=== PATIENT | female | born 1965 | race Caucasian/White ===

== ENCOUNTER 2017-05-01 11:59 | Day surgery (SDC) | payer OTHER ==
[2017-04-27 11:08] VITALS: BMI 34.2
[2017-05-01] MEDS ORDERED: MIDAZOLAM HCL 2 MG/2 ML SINGLE DOSE VIAL ONE (13:34)
[2017-05-01] MEDS ORDERED: PROPOFOL 20 ML ONE ×4 (13:34→15:06)
[2017-05-01] MEDS ORDERED: LIDOCAINE HCL 2% (20ML MULTI-DOSE VIAL) NR ONE (13:35)
[2017-05-01] MEDS ORDERED: BUPIVACAINE HCL/PF 0.5% (5MG/ML) 10 ML VIAL ONE ×2 (13:35→14:30)
[2017-05-01] MEDS ORDERED: ceFAZolin SODIUM 1 GM VIAL ONE (14:17)
[2017-05-01] MEDS ORDERED: DEXAMETHASONE SOD PHOSPHATE 4 MG/1 ML VIAL ONE (14:17)
[2017-05-01] MEDS ORDERED: KETOROLAC TROMETHAMINE 30 MG/1 ML VIAL ONE (14:17)
[2017-05-01] MEDS ORDERED: ONDANSETRON 4 MG/2 ML VIAL ONE (14:17)
[2017-05-01] MEDS ORDERED: BUPIVACAINE HCL/PF 0.5% (5MG/ML) 10 ML VIAL IJ ONE (14:25)
[2017-05-01] MEDS ORDERED: LIDOCAINE HCL 2% (50ML VIAL) INF ONE (14:25)
[2017-05-01] MEDS ORDERED: ONDANSETRON 4 MG/2 ML VIAL IVPUSH PRN (15:11)
[2017-05-01] MEDS ORDERED: oxyCODONE HCL 5 MG TABLET PO PRN ×2 (15:11)
[2017-05-01] MEDS ORDERED: LACTATED RINGERS SOLUTION 1,000 ML IV SCH (15:15)
[2017-05-01 17:38] VITALS: PULSE 58
[2017-05-01 17:50] VITALS: BP 136/76; TEMP 97.7
--- NOTE | 2017-05-03 10:41 | OP ---
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 OPERATION: Excision of bone cyst 3rd digit middle phalanx with biopsy, right foot. Packing of bone cyst with cancellous bone. DESCRIPTION OF PROCEDURE: After noting all vital signs to be stable, the patient was brought to the operating room and placed on the table in the supine position. After intravenous anesthesia was administered, local anesthesia was then administered to the 3rd digit of the right foot using 6 mL of 2% lidocaine and 0.5% Marcaine plain. An ankle tourniquet was applied to the right ankle. The right foot was prepped and draped in the usual sterile fashion. The right foot was elevated and exsanguinated, and the ankle tourniquet was inflated to 250 mmHg. Attention was directed to the right 3rd digit, where a 3-cm linear incision was created overlying the digit. The incision was deepened through skin and subcutaneous tissue. The extensor tendon was identified and was transected at the proximal interphalangeal joint. The extensor tendon was reflected proximally and distally. The middle phalanx of the 3rd digit on the right foot was then exposed. The periosteal tissue and collateral ligaments were dissected free off of the middle phalanx. A bone cyst was noted on the lateral aspect dorsally of the middle phalanx. The bone cyst was probed and opened with the 15 blade. A curette was then used to excise the cancellous bone cyst. A rongeur was used to resect excessive bony cortical erosive lesions on the dorsal aspect of the middle phalanx. The cortical and cancellous specimens were and sent for separate pathological findings. The cyst was flushed with copious amounts of sterile saline. Cancellous bone chips were then used to pack the bone cyst void. The extensor tendon was then reapproximated with 4-0 Vicryl. The skin was then reapproximated with simple interrupted sutures using 4-0 Prolene. Postoperative anesthesia was administered to the right 3rd toe using 5 mL of 0.5% Marcaine. The right 3rd toe was dressed in the usual sterile fashion with Betadine-soaked Adaptic, gauze, Gabe and Coban. The patient tolerated the procedure well, with no complications. The ankle tourniquet was deflated and capillary refill was noted to be within 1 second to all digits of the right foot. The patient was transferred to the recovery room with vital signs stable. LUC BLANCA/[id number]
--- NOTE | 2017-05-06 15:18 | PATH ---
Surgical Pathology Report Patient Name: LAURENCE THOMAS [facility]. Rec. #: [id number] /Age/Gender: 1965 (Age: 51) / F Account: [id number] Location: [facility] Taken: 05/01/2017 Received: 05/01/2017 Reported: 05/06/2017 Physicians: Walter Leyva Specimen(s) Received A: RIGHT THIRD TOE CORTEX B: RIGHT THIRD TOE CYST/TUMOR Clinical History Unknown duration, bone cyst of right third toe Final Diagnosis A. BONE, THIRD TOE, RIGHT, CORTEX, BIOPSY: FRAGMENTS OF BONE AND CARTILAGE WITH DEGENERATIVE CHANGES. SEE COMMENT. B. BONE, THIRD TOE, RIGHT, CYST/TUMOR (BONE MARROW-CANCELLOUS BONE), BIOPSY: FRAGMENTS OF BONE WITH ASSOCIATED FIBROCONNECTIVE TISSUE AND FOCI OF REACTIVE/NEW BONE FORMATION. SEE COMMENT. Comment: Findings are compatible with clinical impression of Unicameral Bone cyst. Medical chart reviewed. Electronically Signed Coretta Lewis M.D. Gross Description A. Received in formalin labeled "right third toe cortex," are 2 harmon bone fragments measuring 0.5 and 0.6 cm in greatest dimension. The specimens are submitted in toto in one cassette, following decalcification. B. Received in formalin labeled "right third toe cyst/tumor (bone marrow-cancellous bone)," is a 0.6 x 0.5 x 0.2 cm aggregate of harmon bone fragments. The formalin is filtered and the specimen is entirely submitted in one cassette, following decalcification. 05/05/201705/05/2017
== END 2017-05-01 17:39 | disposition home or self-care (01) ==
LOC: FASU 11:59
PROVIDERS: ATTEND Podiatrist Foot & Ankle Surgery
PROC: 0QR Lower Bones, Replacement (ICD-10-PCS; 2017-05-01)
PROC: 0YBM0ZZ Excision of Right Foot, Open Approach (ICD-10-PCS; principal; 2017-05-01 13:59)
DX: M85.471 Solitary bone cyst, right ankle and foot (principal)
CPT/HCPCS: 73630-TC-RT; 88304-TC; 88311-TC; 94760

== ENCOUNTER 2017-05-13 09:24 | Emergency (ER) | payer OTHER ==
--- NOTE | 2017-05-13 09:46 | PDOC ---
History of Present Illness - General Chief Complaint: Wound Infection Stated Complaint: INFECTED LEFT FOOT 3 RD TOE SURGICAL SITE Time Seen by Provider: 05/13/17 09:43 - History of Present Illness Initial Comments: 05/13/17 11:22 Chief complaint: Infection toe History of present illness: Patient had surgery on her right third toe May 01. A bone cyst was curetted by commercial sales director in the operating room, same-day surgery. Developed increased pain and redness and swelling several days ago, was begun on Augmentin, but has not improved. Review of systems: No fever/chills, malaise, fatigue, myalgias or arthralgias, chest pain, shortness of breath, abdominal pain, nausea, vomiting, diarrhea, visual or focal neurologic symptoms, unsteadiness of gait. Past medical history: Patient denies comorbidities including diabetes or other metabolic diseases, collagen-vascular disease, coronary artery disease, pulmonary disease, kidney disease. Social/family history reviewed and noncontributory Physical exam: Alert and oriented well-developed well-nourished no acute distress cheerful and cooperative. Gait stable and unimpaired Afebrile, vital signs normal PERRLA, ENT clear Neck supple without bruit mass or nodes Chest clear CV regular without murmur rub or gallop Abdomen benign Right third toe shows diffuse erythema and induration. There is a dorsal incision at the site of surgery. There is no drainage, no fluctuance or other sign of abscess. Several sutures are still in place. There is no extension to the dorsum of the foot or to the other toes. There is no sign of inflammation on the plantar aspect of the foot or the toes. Impression: Possible superficial skin infection resistant to Augmentin. The patient has been doing a considerable amount of standing and walking, probably inhibiting complete healing. No sign of systemic infection or sepsis. Plan: After discussion with the commercial sales director in the patient, it was decided to repeat the cultures, administer an intravenous dose of antibiotic now, and continue by mouth medication to cover MRSA. If systemic symptoms develop such as fever/chills, increased pain or redness, or extension of the infection, the patient is to return to the ER for admission and intravenous antibiotics. Otherwise if there is improvement, to continue oral antibiotics and follow-up closely. Past History - Past Medical History Allergies/Adverse Reactions: Allergies Allergy/AdvReac Type Severity Reaction Status Date / Time No Known Allergies Allergy Verified 05/13/17 09:26 Home Medications: Ambulatory Orders Duloxetine HCl [Cymbalta -] 60 mg PO DAILY 04/27/17 Cephalexin Monohydrate [Keflex] 500 mg PO Q6H #30 capsule 05/13/17 Mupirocin Cream [Bactroban 2% Cream -] 1 applic TP TID 05/13/17 Sulfamethoxazole/Trimethoprim [Bactrim Ds -] 1 tab PO BID #14 tablet 05/13/17 Anemia: No Asthma: No Cancer: No Cardiac Disorders: No CVA: No COPD: No CHF: No Dementia: No Diabetes: No GI Disorders: No Disorders: No HTN: No Hypercholesterolemia: No Liver Disease: No Seizures: No Thyroid Disease: No - Surgical History Abdominal Surgery: Yes Appendectomy: No Cardiac Surgery: No Cholecystectomy: No Lung Surgery: No Neurologic Surgery: No Orthopedic Surgery: No - Suicide/Smoking/Psychosocial Hx Smoking History: Never smoked Hx Alcohol Use: Yes (socially) Drug/Substance Use Hx: No Hx Substance Use Treatment: No Medical Decision Making - Medical Decision Making 05/13/17 10:22 X-ray shows sign of old surgery, no definite osteomyelitis Repeat culture taken from the wound. Remaining stitches removed. No drainage or purulence is noted Discussed admission versus outpatient treatment. The patient would prefer to avoid admission and to attempt outpatient treatment. Business Services Manager was contacted by phone. He does not have the initial culture results , but promises to call for results now and get back to me. In the meantime, will cover with additional antibiotic and treat as an outpatient for 24-48 hours, with instructions to return to the ER if there is increased pain, swelling, redness, drainage, or fevers/chills. Patient adequately ambulatory and in no significant distress upon discharge to follow- up as instructed. 05/13/17 11:11 Culture from Thursday obtained from commercial sales director reportedly shows no growth. *DC/Admit/Observation/Transfer Diagnosis at time of Disposition: Wound infection after surgery Qualifiers: Encounter type: initial encounter Qualified Code(s): T81.4XXA - Infection following a procedure, initial encounter - Discharge Dispostion Disposition: HOME Condition at time of disposition: Improved Admit: No - Prescriptions Prescriptions: Cephalexin Monohydrate [Keflex] 500 mg PO Q6H #30 capsule Sulfamethoxazole/Trimethoprim [Bactrim Ds -] 1 tab PO BID #14 tablet - Referrals - Patient Instructions Printed Discharge Instructions: DI for Wound Infection Additional Instructions: Bed rest and elevation until improvement. If worse, or if there are fevers/chills, return to ER. Otherwise follow-up with primary physician. - Post Discharge Activity Forms/Work/School Notes: Back to Work
[2017-05-13 09:54] VITALS: BP 132/88; PULSE 80; TEMP 98.4; BMI 34.2
[2017-05-13] MEDS ORDERED: CEFAZOLIN 1 GM in DEXTROSE 5%-WATER - 50 ML IVPB ONE (10:25)
[2017-05-13] MEDS ORDERED: ceFAZolin SODIUM 1 GM VIAL ONE (10:52)
== END 2017-05-13 11:41 | disposition home or self-care (01) ==
LOC: FER 09:24
DX: T81.4XXA Infection following a procedure, initial encounter (principal); Z48.02 Encounter for removal of sutures; E11.9 Type 2 diabetes mellitus without complications
CPT/HCPCS: 73660-TC; 87070; 87205; 99281-25